=== PATIENT | female | born 1945 | race Caucasian/White ===

== ENCOUNTER 2016-10-14 20:27 | Emergency (ER) | payer OTHER ==
[~2016-10-14] VITALS: Ht 157.5 cm; Wt 61.8 kg
[2016-10-14] MEDS ORDERED: OXYcodone IR 5MG TABLET ONE (22:58)
[2016-10-14] MEDS ORDERED: OXYcodone IR 30 MG TABLET PO ONE (23:00)
[2016-10-14] MEDS ORDERED: OXYC5TAB3 PO (23:19)
[2016-10-14] MEDS ORDERED: [UNRECOGNIZED DRUG - OTHER] PO (23:19)
[2016-10-14] MEDS ORDERED: CARB200T PO (23:19)
[2016-10-14] MEDS ORDERED: TIOT18CA INH (23:19)
[2016-10-14] MEDS ORDERED: OXYC-229 PO (23:19)
[2016-10-14] MEDS ORDERED: ATOR20TA PO (23:19)
[2016-10-14] MEDS ORDERED: FLUT1DIS3 INH ×2 (23:19)
[2016-10-14] MEDS ORDERED: CARV3.1212 PO (23:19)
[2016-10-14] MEDS ORDERED: ENAL10TA PO (23:19)
[2016-10-14] MEDS ORDERED: CITA20TA9 PO (23:19)
[2016-10-14 23:38] LABS: BLOOD UREA NITROGEN 19 mg/dL (7-18)
[2016-10-14 23:42] LABS: IS PT STATUS REG ER OR PRE ER? YES
[2016-10-15 00:11] VITALS: BP 133/68
== END 2016-10-15 00:14 | disposition home or self-care (01) ==
LOC: ED 10-15 00:08
DX: M13.811 Other specified arthritis, right shoulder (principal); R51 Headache; G89.29 Other chronic pain; M25.511 Pain in right shoulder; J45.909 Unspecified asthma, uncomplicated; F17.200 Nicotine dependence, unspecified, uncomplicated
CPT/HCPCS: 36415; 71010; 80048; 82040; 84484; 85025; 93005; 99285

== ENCOUNTER 2017-03-02 19:19 | Emergency (ER) | payer OTHER ==
[~2017-03-02] VITALS: Ht 157.5 cm; Wt 56.0 kg
[~2017-03-02 19:19] MED LIST: ATOR20TA PO; CARB200T PO; CARV3.1212 PO; CITA20TA9 PO; ENAL10TA PO; FLUT1DIS3 INH; OXYC-307 PO; OXYC5TAB3 PO; TIOT18CA INH; [UNRECOGNIZED DRUG - OTHER] PO
[2017-03-02 20:15] LABS: HEMATOCRIT 42.1 % (34.6-47.8); HEMOGLOBIN 14.4 g/dL (11.7-16.4); WHITE BLOOD COUNT 7.9 x10^3/uL (3.4-10)
[2017-03-02 20:24] LABS: BLOOD UREA NITROGEN 8 mg/dL (7-18)
[2017-03-02] MEDS ORDERED: CARV3.1212 PO (20:42)
[2017-03-02] MEDS ORDERED: DEXAMETHASONE 4 MG TABLET ONE (21:49)
[2017-03-02] MEDS ORDERED: ENALAPRIL 20MG TABLET PO ONE (22:00)
[2017-03-02] MEDS ORDERED: DEXAMETHASONE 4 MG TABLET PO ONE (22:00)
[2017-03-02] MEDS ORDERED: ENALAPRIL 10 MG TABLET PO ONE (22:00)
[2017-03-02 22:20] VITALS: BP 149/77
== END 2017-03-02 22:20 | disposition home or self-care (01) ==
LOC: ED 19:57
DX: I10 Essential (primary) hypertension (principal); B34.9 Viral infection, unspecified; F17.210 Nicotine dependence, cigarettes, uncomplicated; J45.909 Unspecified asthma, uncomplicated
CPT/HCPCS: 36415; 71020; 80048; 82040; 85025; 99285